=== PATIENT | male | born 1940 | race Caucasian/White ===

== ENCOUNTER → 2018-09-16 | Outpatient (CLI) | payer MEDICARE ==
--- NOTE | 2018-09-16 17:23 | PCVCIMAG ---
APPROVED REPORT Study performed: 09/16/2018 13:20:57 EXAM: Comprehensive 2D, Doppler, and color-flow Echocardiogram Patient Location: Echo lab Status: routine BSA: 1.85 HR: 70 bpmBP: 130/80 mmHg Rhythm: NSR Other Information Study Quality: Technically Difficult Risk Factors: Cardiac Risk Factors: HTN, DM, COPD Indications Chest Pressure Pre-Chemo Diabetes Hypertension/HDD 2D Dimensions LV Single Plane 4CH: 31.81 % Tricuspid Valve TR Peak Braulio.: 2.46 m/s TR Peak Gr.: 24.24 mmHg Left Ventricle LVEF is 35%.worse inf septum Tricuspid Valve Trace tricuspid regurgitation. Pulmonary artery pressure is 30mmhg. Pericardium no effusion <Conclusion> LVEF is 35%.worse inf septum Trace tricuspid regurgitation. Pulmonary artery pressure is 30mmhg. no effusion
== END | disposition home or self-care (01) ==
LOC: PCVCIMAG 13:12
PROVIDERS: ATTEND Internal Medicine Cardiovascular Disease
DX: I10 Essential (primary) hypertension (principal); R07.89 Other chest pain; I25.5 Ischemic cardiomyopathy; J44.9 Chronic obstructive pulmonary disease, unspecified; E11.9 Type 2 diabetes mellitus without complications
CPT/HCPCS: 93308